=== PATIENT | female | born 1980 | race Caucasian/White ===

== ENCOUNTER 2016-11-14 08:29 | Outpatient (CLI) | payer OTHER | END 2016-11-14 08:30 | disposition home or self-care (01) | LOC: BURLAB 08:29 | PROVIDERS: ATTEND Family Medicine | DX: R73.09 Other abnormal glucose (principal) | CPT/HCPCS: 36415; 82951; 82952 ==

== ENCOUNTER 2017-03-07 16:37 | Outpatient (CLI) | payer OTHER ==
[2017-03-07 16:52] LABS: Bacteria/HPF Rare-Few HPF (None Seen); RBC/HPF 0-3 HPF (0-3); Squamous Epithelial 0-3 HPF (0-3); WBC/HPF 0-3 HPF (0-3)
== END 2017-03-07 16:38 | disposition home or self-care (01) ==
LOC: HPCALD 16:37
PROVIDERS: ATTEND Physician Assistant
DX: R35.0 Frequency of micturition (principal); R39.89 Other symptoms and signs involving the genitourinary system
CPT/HCPCS: 81015

== ENCOUNTER → 2019-09-02 | Emergency (ER) | payer OTHER, SELFPAY | LOC: BURERS 21:26 | DX: J11.1 Influenza due to unidentified influenza virus with other respiratory manifestations (principal); K21.9 Gastro-esophageal reflux disease without esophagitis ==

== ENCOUNTER 2020-01-04 17:26 | Emergency (ER) | payer SELFPAY ==
--- NOTE | 2020-01-05 00:20 | RAD ---
CHEST TWO VIEWS: Date: 01-04-2020 FINDINGS: Some faint haziness in the right middle lobe is suggested on both the PA and lateral views. Suspicion of pneumonia is raised. The lungs are otherwise clear. There are no effusions. The heart is normal i n size. IMPRESSION: Suspicion of right middle lobe infiltrate. Code T POS: HOME
== END 2020-01-04 18:36 | disposition home or self-care (01) ==
LOC: BURERS 17:26
DX: J20.9 Acute bronchitis, unspecified (principal); R19.7 Diarrhea, unspecified; K21.9 Gastro-esophageal reflux disease without esophagitis; Z87.891 Personal history of nicotine dependence
CPT/HCPCS: 71046; 87804